=== PATIENT | female | born 1945 | race Caucasian/White ===

== ENCOUNTER 2021-11-19 12:50 | Emergency (ER) | payer OTHER, MEDICARE ==
[2021-11-19] MEDS ORDERED: SODIUM CHLORIDE 0.9% 500 ML INFUS.BAG IV ONE (14:41)
[2021-11-19 14:55] VITALS: TEMP 98.4; BMI 16.2
[2021-11-19 16:25] LABS: BASO % 0.2 % (0-2.0); HEMATOCRIT 36.2 % (32.4-45.2); HEMOGLOBIN 12.4 GM/dL (10.7-15.3); LYMPH % 3.6 % (8-40); MCH 31.8 pg (25.7-33.7); MCHC 34.3 g/dl (32.0-36.0); MEAN CELL VOLUME 92.7 fl (80-96); MONO % 3.4 % (3.8-10.2); NEUT % 92.8 % (42.8-82.8); PLATELET COUNT 293 10^3/uL (134-434); RDW 12.4 % (11.6-15.6); WHITE BLOOD COUNT 9.4 K/mm3 (4.0-10.0)
[2021-11-19 16:46] LABS: CHLORIDE 102 mmol/L (98-107); SODIUM 137 mmol/L (136-145)
[2021-11-19 16:48] LABS: ANISOCYTOSIS 1+; MACROCYTOSIS 0; PLATELET ESTIMATE NORMAL
[2021-11-19 16:49] LABS: ALBUMIN 3.6 g/dl (3.4-5.0); ANION GAP 8 MMOL/L (8-16); BLOOD UREA NITROGEN 20.1 mg/dL (7-18); CALCIUM 9.3 mg/dL (8.5-10.1); CO2 27 mmol/L (21-32)
[2021-11-19 16:50] LABS: GLUCOSE,RANDOM 111 mg/dL (74-106)
[2021-11-19 16:52] LABS: CREATININE 0.8 mg/dL (0.55-1.3); SGOT/AST 22 U/L (15-37); SGPT/ALT 19 U/L (13-61)
[2021-11-19 16:54] LABS: BILIRUBIN,TOTAL 0.5 mg/dL (0.2-1); TOT PROT 6.8 g/dl (6.4-8.2)
[2021-11-19 16:55] LABS: ALK PHOS 37 U/L (45-117)
[2021-11-19 17:16] VITALS: BP 150/78; PULSE 54
== END 2021-11-19 17:46 | disposition home or self-care (01) ==
LOC: JER 12:50
DX: R55 Syncope and collapse (principal)
CPT/HCPCS: 36415; 70450-TC; 71046-TC-FY; 72125-TC; 80053; 82550; 82962; 84439; 84443; 84484; 85025; 93005; 93010; 99285-25

== ENCOUNTER 2023-01-06 16:03 | Emergency (ER) | payer OTHER, MEDICARE ==
[2023-01-06 16:13] VITALS: BP 144/67; PULSE 67; RESP 18; TEMP 97.5; BMI 16.5
== END 2023-01-06 17:15 | disposition home or self-care (01) ==
LOC: JERFT 16:03
DX: M77.41 Metatarsalgia, right foot (principal)
CPT/HCPCS: 73610-TC-RT-FY; 73630-TC-RT-FY; 99283-25

== ENCOUNTER 2023-10-01 12:08 | Emergency (ER) | payer OTHER, MEDICARE ==
[2023-10-01 12:25] VITALS: RESP 18; TEMP 97.4; BMI 16.1
[2023-10-01] MEDS ORDERED: morphine CARPU-JECT 4 MG/1 ML DISP.SYRIN IVPUSH ONE (13:04)
[2023-10-01] MEDS ORDERED: morphine SULFATE 4 MG/ML VIAL ONE (13:05)
[2023-10-01] MEDS ORDERED: LIDOCAINE 1%/EPI 1:100000 (20 ML MULTI DOSE VIAL) IJ ONE (13:30)
[2023-10-01] MEDS ORDERED: LIDOCAINE 1%/EPI 1:100000 (50 ML MULTI DOSE VIAL) ONE (13:31)
[2023-10-01] MEDS ORDERED: PROPOFOL 1,000,000 MCG/100 ML VIAL ONE (13:46)
[2023-10-01 15:34] VITALS: BP 129/43; PULSE 53
== END 2023-10-01 15:36 | disposition home or self-care (01) ==
LOC: JER 12:08
PROC: 0RSJXZZ Reposition Right Shoulder Joint, External Approach (ICD-10-PCS; principal; 2023-10-01)
PROC: 3E033NZ Introduction of Analgesics, Hypnotics, Sedatives into Peripheral Vein, Percutaneous Approach (ICD-10-PCS; 2023-10-01)
DX: S43.014A Anterior dislocation of right humerus, initial encounter (principal); X50.3XXA Overexertion from repetitive movements, initial encounter; Y92.9 Unspecified place or not applicable
CPT/HCPCS: 23650; 73030-TC-RT-FY; 96374; 99284-25

== ENCOUNTER 2024-07-28 05:52 | Day surgery (SDC) | payer OTHER, MEDICARE ==
[2024-07-28 07:09] VITALS: BMI 16.2
[2024-07-28] MEDS ORDERED: MIDAZOLAM HCL 2 MG/2 ML SINGLE DOSE VIAL ONE (07:18)
[2024-07-28] MEDS ORDERED: KETAMINE HCL 100 MG/ML - 5ML VIAL ONE (07:18)
[2024-07-28] MEDS ORDERED: BUPIVACAINE LIPOSOME/PF (EXPAREL) 266 MG/20 ML VIAL ONE (07:18)
[2024-07-28] MEDS ORDERED: BUPIVACAINE HCL/PF 0.5% (5 MG/ML) 30 ML VIAL IJ ONE (07:18)
[2024-07-28] MEDS ORDERED: VANCOMYCIN 1,000 MG VIAL (RESTRICTED TO ID ONLY) ONE (07:32)
[2024-07-28] MEDS ORDERED: TRANEXAMIC ACID 1000 MG/10 ML VIAL ONE (07:32)
[2024-07-28] MEDS ORDERED: PROPOFOL 20 ML ONE (07:49)
[2024-07-28] MEDS ORDERED: ROCURONIUM BROMIDE 50 MG/5 ML SYRINGE ONE (07:49)
[2024-07-28] MEDS ORDERED: ACETAMINOPHEN INJECTION 100 ML ONE (08:45)
[2024-07-28] MEDS ORDERED: NEOSTIGMINE METHYLSULFATE 0.5 MG/1 ML - 10 ML MDV ONE (09:16)
[2024-07-28] MEDS: VANCOMYCIN 1,000 MG VIAL (RESTRICTED TO ID ONLY) IVPB ONE ×2 (09:45)
[2024-07-28] MEDS ORDERED: ONDANSETRON 4 MG/2 ML VIAL IVPUSH PRN ×2 (10:27→10:29)
[2024-07-28] MEDS ORDERED: MAGNESIUM HYDROX 2400MG/30ML ORAL SUSPENSION 30 ML CUP PO PRN (10:27)
[2024-07-28] MEDS ORDERED: MAG HYDROX/AL HYDROX/SIMETH 30 ML UNIT-DOSE CUP PO PRN (10:27)
[2024-07-28] MEDS ORDERED: oxyCODONE HCL 5 MG TABLET PO PRN (10:29)
[2024-07-28] MEDS ORDERED: LACTATED RINGERS SOLUTION 1,000 ML IV SCH ×2 (10:30)
[2024-07-28] MEDS ORDERED: ceFAZolin SODIUM 1 GM VIAL ONE ×2 (16:12→23:24)
[2024-07-28] MEDS: CEFAZOLIN 1 GM in DEXTROSE 5%-WATER - 50 ML IVPB SCH (16:21)
[2024-07-28] MEDS: VANCOMYCIN 500 MG in DEXTROSE 5%-WATER 100 ML IVPB ONE (21:06)
[2024-07-28] MEDS: ATORVASTATIN CA 40 MG TABLET (FP) PO SCH (21:07)
[2024-07-28] MEDS: SENNOSIDES/DOCUSATE COMBO (SENNA PLUS) TABLET (UD) PO SCH (21:07)
[2024-07-28 22:49] VITALS: RESP 18
[2024-07-29 06:18] VITALS: TEMP 98.2
[2024-07-29] MEDS: MULTIVITAMINS (DAILY MVI) TABLET (FP) PO SCH (07:53)
[2024-07-29] MEDS: SENNOSIDES/DOCUSATE COMBO (SENNA PLUS) TABLET (UD) PO SCH (07:54)
[2024-07-29] MEDS: ASPIRIN 325 MG TABLET PO SCH (07:54)
[2024-07-29] MEDS: PANTOPRAZOLE 40 MG TABLET PO SCH (07:54)
[2024-07-29 08:41] LABS: HEMATOCRIT 38.8 % (32.4-45.2); HEMOGLOBIN 12.4 G/dL (10.7-15.3); MCH 30.7 pg (25.7-33.7); MCHC 31.9 g/dl (32.0-36.0); MEAN CELL VOLUME 96.4 fl (80-96); MEAN PLT VOLUME 7.4 fl (7.5-11.1); PLATELET COUNT 326.9 10^3/uL (134-434); RBC 4.02 10^6/uL (3.60-5.2); RDW 14.7 % (11.6-15.6); WHITE BLOOD COUNT 12.3 10^3/uL (4.0-10.8)
[2024-07-29 09:06] LABS: CALCIUM 8.9 mg/dl (8.5-10.1); CREATININE 0.6 mg/dl (0.6-1.3); POTASSIUM 4.1 mmol/L (3.5-5.1)
[2024-07-29] MEDS: ATENOLOL 25 MG TABLET (FP) PO SCH (09:15)
[2024-07-29] MEDS: LEVOTHYROXINE NA 50 MCG TABLET (FP) PO ONE (09:15)
[2024-07-29] MEDS: LOSARTAN POTASSIUM 50 MG TABLET PO SCH (09:15)
[2024-07-29 10:28] VITALS: BP 100/59; PULSE 57
== END 2024-07-29 13:54 | disposition home or self-care (01) ==
LOC: FASUSAT 05:52 → FM/S 11:36 → FASUSAT 07-29 13:54
PROVIDERS: ATTEND Orthopaedic Surgery
PROC: 0LS30ZZ Reposition Right Upper Arm Tendon, Open Approach (ICD-10-PCS; 2024-07-28)
PROC: 0RRJ00Z Replacement of Right Shoulder Joint with Reverse Ball and Socket Synthetic Substitute, Open Approach (ICD-10-PCS; principal; 2024-07-28 08:25)
DX: M19.011 Primary osteoarthritis, right shoulder (principal); M75.101 Unspecified rotator cuff tear or rupture of right shoulder, not specified as traumatic; M75.21 Bicipital tendinitis, right shoulder; S43.014A Anterior dislocation of right humerus, initial encounter; X58.XXXA Exposure to other specified factors, initial encounter; Y93.9 Activity, unspecified; Y92.9 Unspecified place or not applicable
CPT/HCPCS: 36415; 73030-TC-RT-FY; 80048; 85027; 88304-TC; 88305-TC; 88311-TC; 94760; 97116-GP; 97162-GP; C1713; C1776; J0131